=== PATIENT | male | born 1980 | race Caucasian/White ===

== ENCOUNTER 2019-07-03 03:49 | Emergency (ER) | payer OTHER, SELFPAY ==
[~2019-07-03 03:49] MED LIST: /FEXO18TA PO; AMBI10TA PO; AMBIEN PO; ANEX7.5T PO; AUGM875T27 PO; Allegra PO; CARA1TAB2 PO; CYTO1TAB PO; FEOSOL OR; FERR325T3 PO; FLEX10TA2 PO; FLEXERIL; FOLI1TAB86 PO; GABA100C PO; Inderal PO; KEPP500T4 PO; LEVA1TAB2 PO; LYRI100C PO; MAPA500T17 PO; MELA5CAP3 PO; METH75TA GT; MISO200T3 PO; MOME50SP; MULTIVIT OR; MULTTAB4 PO; Motrin PO; NORCOTAB PO; NS; OCEA0.65; OXAZ10CA PO; PERC5TAB PO; PERCOCET PO; PRIL20CA PO; PRIL40CA PO; PROP10TAB PO; PROP20TA5 PO; PROP60TA OR; PROT1TAB2 OR; PROT1TAB2 PO; PROZ10CA7 PO; PSEU30TA3 PO; ROZE8TAB PO; SENO8.6T10 PO; SERO1TAB PO; SUCR1TAB56 OR; TRAM50TA2 PO; TRAZ150T PO; TRAZ50TA2 PO; TYLE325T5 PO; Tylenol PO; UNISOM PO; VENL37TA PO; VENL75CA PO; VICO5TA PO; VITA100T60 PO; VITA1TAB23 PO; VITA500047 PO; VITA500T OR; VITMTA PO; WELL100T OR; WELLTAB38 PO; WELLTAB4 PO; ZYRT10CA PO
[2019-07-03] MEDS ORDERED: DISU250T PO (04:18)
[2019-07-03] MEDS ORDERED: ADDE30TA PO (04:18)
[2019-07-03] MEDS ORDERED: KEPP1TAB PO (04:18)
[2019-07-03] MEDS ORDERED: VENL37TA PO (04:18)
[2019-07-03] MEDS ORDERED: PRIS50TA PO (04:18)
[2019-07-03 04:55] LABS: WHITE BLOOD COUNT 7.7 10^3/uL (4.0-10.0)
[2019-07-03 04:56] LABS: HEMATOCRIT 41.3 % (42.0-52.0); HEMOGLOBIN 12.9 g/dl (13.5-17.5); MEAN CORPUSCULAR HEMOGLOBIN 24.8 pg (27.0-33.0); MEAN CORPUSCULAR HGB CONC 31.2 g/dl (32.0-36.5); MEAN CORPUSCULAR VOLUME 79.4 fl (80.0-96.0); PLATELET COUNT, AUTOMATED 232 10^3/uL (150-450)
[2019-07-03 05:43] VITALS: BP 156/90
[2019-07-03 05:47] LABS: BLOOD UREA NITROGEN 8 MG/DL (7-18); CHLORIDE LEVEL 105 MEQ/L (98-107); CREATININE FOR GFR 0.97 MG/DL (0.70-1.30); GLOMERULAR FILTRATION RATE > 60.0 (>60); GLUCOSE, FASTING 87 MG/DL (70-100); POTASSIUM SERUM 3.7 MEQ/L (3.5-5.1); SODIUM LEVEL 139 MEQ/L (136-145)
[2019-07-03 05:48] LABS: CARBON DIOXIDE LEVEL 25 MEQ/L (21-32)
== END 2019-07-03 06:04 | disposition home or self-care (01) ==
LOC: M ED 03:49
DX: G40.509 Epileptic seizures related to external causes, not intractable, without status epilepticus (principal); F13.10 Sedative, hypnotic or anxiolytic abuse, uncomplicated; Z72.0 Tobacco use; Z79.899 Other long term (current) drug therapy; Z88.6 Allergy status to analgesic agent; Z88.5 Allergy status to narcotic agent; Z88.8 Allergy status to other drugs, medicaments and biological substances